=== PATIENT | female | born 1940 | race Caucasian/White ===

== ENCOUNTER 2024-04-10 14:54 | Emergency (ER) | payer MEDICARE, BC ==
[~2024-04-10] VITALS: Ht 162.6 cm; Wt 76.2 kg
[~2024-04-10 14:54] MED LIST: AMLO10TA4 PO; ATOR40TA PO; BLOO-129 IN; METF-440 PO; NEBI5TAB8 PO
[2024-04-10] MEDS ORDERED: ACETAMINOPHEN 325 MG TABLET ONE (15:47)
[2024-04-10] MEDS: ACETAMINOPHEN 325 MG TABLET PO ONE (16:45)
[2024-04-10 17:18] VITALS: TEMP 98.2
[2024-04-10] MEDS: BACI/NEOM/POLY B OINT PKT 1 UDPKT PACKET TP ONE (18:46)
[2024-04-10 19:22] VITALS: BP 148/78; O2SAT 97
== END 2024-04-10 19:33 | disposition left against medical advice (07) ==
LOC: ER 14:59
DX: S52.021A Displaced fracture of olecranon process without intraarticular extension of right ulna, initial encounter for closed fracture (principal); E11.9 Type 2 diabetes mellitus without complications; E78.5 Hyperlipidemia, unspecified; I10 Essential (primary) hypertension; I48.91 Unspecified atrial fibrillation; M47.812 Spondylosis without myelopathy or radiculopathy, cervical region; Z79.01 Long term (current) use of anticoagulants; Z79.84 Long term (current) use of oral hypoglycemic drugs; Z79.899 Other long term (current) drug therapy; Z88.5 Allergy status to narcotic agent; Z60.2 Problems related to living alone; Z53.29 Procedure and treatment not carried out because of patient's decision for other reasons; Z88.7 Allergy status to serum and vaccine; W18.30XA Fall on same level, unspecified, initial encounter; Y93.89 Activity, other specified; Y92.89 Other specified places as the place of occurrence of the external cause; Y99.8 Other external cause status
CPT/HCPCS: 70450-TC; 71045-TC; 72125-TC; 72170-TC; 73030-TC; 73080-TC; 73564-TC